=== PATIENT | female | born 1995 ===

== ENCOUNTER → 2021-02-13 10:40 | Outpatient (CLI) | payer OTHER, SELFPAY ==
[2021-02-13 21:53] LABS: COVID19 - ORCAS (NP or Nasal) POSITIVE (Negative)
== END ==
PROVIDERS: PCP Physician Assistant Medical; Referring Provider Physician Assistant Medical; Visit Provider Physician Assistant Medical
DX: U07.1 COVID-19 (principal)
CPT/HCPCS: U0003

== ENCOUNTER → 2021-02-19 16:45 | Outpatient (CLI) | payer OTHER, SELFPAY ==
[2021-02-20 22:15] LABS: COVID19 - ORCAS (NP or Nasal) POSITIVE (Negative)
== END ==
PROVIDERS: PCP Physician Assistant Medical; Visit Provider Family Medicine
DX: U07.1 COVID-19 (principal)
CPT/HCPCS: U0003